=== PATIENT | female | born 1960 | race Caucasian/White ===

== ENCOUNTER 2019-11-27 06:46 | Outpatient (CLI) | payer BC, SELFPAY ==
--- NOTE | ~2019-11-27 | NM_ITS ---
EXAMINATION: NM bone scan whole body DATE: 11/27/2019 11:04 INDICATION: Unspecified disorder of bone. Osteoporosis. TECHNIQUE: 24.7. mCi Tc-99m HDP was administered intravenously. Delayed whole-body scintigrams were obtained. COMPARISON: There are no relevant imaging studies at our institution. FINDINGS: Physiologic distribution of bone and soft tissue activity. Mild lower thoracic levocurvature. IMPRESSION: 1. Normal bone scan. Reviewed, dictated and finalized at location A. IMPRESSION: 1. Normal bone scan.
== END 2019-11-27 06:47 | disposition home or self-care (01) ==
LOC: ANHIMG 06:53
PROVIDERS: Visit Provider Internal Medicine Endocrinology, Diabetes & Metabolism
DX: M81.0 Age-related osteoporosis without current pathological fracture (principal)
CPT/HCPCS: 78306; A9561

== ENCOUNTER 2020-07-24 15:11 | Emergency (ER) | payer BC, SELFPAY ==
[2020-07-24 15:34] VITALS: BP 102/75; PULSE 71; RESP 18; TEMP 36.3; O2SAT 98
--- NOTE | 2020-07-24 16:03 | ED.SKABFB ---
HPI - Skin/Abscess/Foreign Bdy General Chief complaint: Skin/Abscess/Foreign Body Stated complaint: infection in left hand Time Seen by Provider: 07/24/20 15:41 Source: patient Mode of arrival: ambulatory Limitations: no limitations History of Present Illness HPI narrative: Patient is a 59-year-old female complaining of swelling and redness on the dorsal aspect of her left hand started approximately 3 days ago. Denies any injury. Denies any fever or chills. No other complaints. Related Data Allergies Allergy/AdvReac Type Severity Reaction Status Date / Time NA Allergy Uncoded 07/30/08 15:20 Review of Systems Review of Systems: All systems reviewed & are unremarkable except as noted in HPI and below Constitutional: Constitutional: Denies body ache(s), Denies chills, Denies excessive sweating, Denies fatigue, Denies fever(s), Denies headache(s), Denies lethargy, Denies malaise, Denies weakness and Denies weight loss Eyes: Eyes: Denies blurry vision, Denies change in vision and Denies loss of vision ENT: Denies dizziness, Denies ear discharge, Denies headache(s), Denies lip swelling, Denies epistaxis, Denies nasal congestion, Denies neck pain, Denies throat swelling and Denies tongue swelling Cardiovascular: Cardiovascular: Denies chest pain, Denies chest pain at rest, Denies chest pain with activity, Denies diaphoresis, Denies rapid heart rate, Denies edema, Denies irregular heart rhythm, Denies lightheadedness, Denies palpitations, Denies dyspnea and Denies dyspnea on exertion Respiratory: Respiratory: Denies chest congestion, Denies cough, Denies hemoptysis, Denies dyspnea and Denies dyspnea on exertion Gastrointestinal: Gastrointestinal: Denies abdominal pain, Denies melena, Denies hematochezia, Denies diarrhea, Denies nausea, Denies vomiting and Denies hematemesis Musculoskeletal: Musculoskeletal: Denies abnormal gait, Denies deformity, Denies joint swelling, Denies limited range of motion, Denies neck pain and Denies numbness Neurologic: Denies Abnormal speech present, Denies abnormal gait, Denies confusion, Denies dizziness, Denies headache(s), Denies focal weakness, Denies loss of vision, Denies numbness, Denies Other visual disturbances, Denies Sensory deficit (Neuro) and Denies weakness Psychiatric: Psychiatric: Denies confusion, Denies depression, Denies auditory hallucinations, Denies homicidal ideation and Denies suicidal ideation Endocrine: Endocrine: Denies cold intolerance, Denies excessive sweating, Denies fatigue, Denies heat intolerance and Denies palpitations Hematologic/Lymphatic: Hematologic/Lymphatic: Denies easy bleeding and Denies easy bruising Allergic/Immunologic: Allergic/Immunologic: Denies lip swelling, Denies throat swelling and Denies tongue swelling PMFSH Social History Social History Gender identity (if verbalized by the patient): Female Comments Past medical history: None Family history: None Social history: Non-smoker no EtOH or drug use. Exam Const: General: no acute distress and alert Orientation/consciousness: patient oriented x3 HENMT: Head: normal to inspection Eyes: Conjunctivae: conjunctivae normal Neck: Neck: normal visual inspection Resp: Effort & Inspection: normal respiratory effort Skin: Other: Erythematous, swollen, tender area on the dorsal aspect of her left hand between the first and second digit measuring approximately 2 x 3 cm. Neurovascular is intact Course Vital Signs Vital signs: Vital Signs Temperature 36.3 C L 07/24/20 15:34 Pulse Rate 71 07/24/20 15:34 Respiratory Rate 18 07/24/20 15:34 Blood Pressure 102/75 07/24/20 15:34 Pulse Oximetry 98 07/24/20 15:34 Temperature 36.3 C L 07/24/20 15:34 Pulse Rate 71 07/24/20 15:34 Respiratory Rate 18 07/24/20 15:34 Blood Pressure 102/75 07/24/20 15:34 Pulse Oximetry 98 07/24/20 15:34 Procedures Abscess I/D hand:
== END 2020-07-24 17:25 | disposition home or self-care (01) ==
PROVIDERS: Emergency Provider Emergency Medicine
DX: L02.512 Cutaneous abscess of left hand (principal)
CPT/HCPCS: 10061; 99283